=== PATIENT | male | born 1955 | race African-American/Black ===

== ENCOUNTER 2021-07-04 18:06 | Emergency (ER) | payer MEDICAID ==
[~2021-07-04] VITALS: Ht 190.5 cm; Wt 85.0 kg
[2021-07-04] MEDS ORDERED: MECLIZINE 25MG TABLET PO ONE (18:30)
[2021-07-04] MEDS ORDERED: DEXAMETHASONE 4MG TABLET PO NR (18:45)
[2021-07-04 19:14] LABS: BASOPHILS % 0.3 % (0.0-2.0); EOSINOPHILS % 0.1 % (0.0-5.0); HEMATOCRIT. 40.7 % (42.0-52.0); HEMOGLOBIN. 13.8 g/dL (14.0-18.0); LYMPHOCYTES % 24.2 % (20.0-50.0); MEAN CORPUSCULAR HEMOGLOBIN 29.1 pg (28.0-32.0); MEAN PLATELET VOLUME 8.8 fl (7.4-10.4); MONOCYTES % 10.3 % (2.0-8.0); NEUTROPHILS % 65.1 % (40.0-76.0); PLATELET 216 x1000/uL (130-400); RED BLOOD CELL COUNT 4.73 mill/uL (4.7-6.1); RED CELL DISTRIBUTION WIDTH 14.1 % (11.6-14.6)
[2021-07-04 19:21] LABS: CHLORIDE 102 mEq/L (98-107)
[2021-07-04 19:28] VITALS: BP 157/83
[2021-07-04] MEDS ORDERED: ALBU6.7H9 INH (20:03)
[2021-07-04] MEDS ORDERED: AZIT250T12 MT (20:04)
== END 2021-07-04 20:57 | disposition home or self-care (01) ==
LOC: ER 18:06
DX: U07.1 COVID-19 (principal); J12.82 Pneumonia due to coronavirus disease 2019; E87.1 Hypo-osmolality and hyponatremia; I44.4 Left anterior fascicular block; D64.9 Anemia, unspecified
CPT/HCPCS: 36415; 71045; 80053; 85025; 93005; 99285; J8540

== ENCOUNTER 2022-06-05 14:26 | Inpatient (IN) | payer MEDICAID ==
[~2022-06-05] VITALS: Ht 188 cm; Wt 99.8 kg
[~2022-06-05 14:26] MED LIST: ALBU6.7H3 INH; AZIT250T12 MT
[2022-06-05] MEDS ORDERED: SODIUM CHLORIDE 0.9% 1,000 ML IV ONE (16:30)
[2022-06-05] MEDS ORDERED: KETOROLAC 30MG/ML VIAL IV NR (16:30)
[2022-06-05 16:41] LABS: BASOPHILS % 0.2 % (0.0-2.0); HEMOGLOBIN. 15.9 g/dL (14.0-18.0); LYMPHOCYTES % 8.4 % (20.0-50.0); MEAN CORPUSCULAR HEMOGLOBIN 29.7 pg (28.0-32.0); MEAN PLATELET VOLUME 8.9 fl (7.4-10.4); MONOCYTES % 6.7 % (2.0-8.0); NEUTROPHILS % 84.7 % (40.0-76.0); PLATELET 282 x1000/uL (130-400); RED BLOOD CELL COUNT 5.34 mill/uL (4.7-6.1); RED CELL DISTRIBUTION WIDTH 14.5 % (11.6-14.6)
[2022-06-05] MEDS ORDERED: MORPHINE SULFATE 4 MG/ML CPJ (NOT FOR IM USE) IV ONE ×2 (17:00→19:45)
[2022-06-05 17:55] LABS: CHLORIDE 104 mEq/L (98-107)
[2022-06-05] MEDS ORDERED: CEFTRIAXONE SODIUM 1 G/VIAL IM NR (19:00)
[2022-06-05] MEDS ORDERED: TAMSULOSIN HCL 0.4MG SR CAPSULE PO NR (19:00)
[2022-06-05] MEDS ORDERED: LIDOCAINE HCL 1% 10 MG/ML 10ML VIAL INJ SCH (19:15)
[2022-06-05 19:16] LABS: CLARITY URINE CLEAR (CLEAR); COLOR URINE YELLOW (YELLOW); KETONES URINE NEGATIVE (NEGATIVE); LEUKOCYTE ESTERASE URINE NEGATIVE (NEGATIVE); NITRITE URINE NEGATIVE (NEGATIVE); OCCULT BLOOD URINE NEGATIVE (NEGATIVE); PH URINE 5.5 (4.5-8.0); PROTEIN URINE 2+ (NEGATIVE); UROBILINOGEN URINE 0.2 E.U./dL (0.2-1.0)
[2022-06-05] MEDS ORDERED: LISINOPRIL 5MG TABLET PO ONE (20:15)
[2022-06-06 03:23] VITALS: BP 156/71
[2022-06-06 08:00] VITALS: BP 118/65
[2022-06-06] MEDS ORDERED: CLONIDINE 0.1MG TABLET PO PRN (08:00)
[2022-06-06] MEDS ORDERED: NALOXONE HCL 0.4MG/ML VIAL IV PRN (08:15)
[2022-06-06] MEDS: SODIUM CHLORIDE 0.9% 1,000 ML IV SCH ×3 (08:38→23:27)
[2022-06-06] MEDS: MORPHINE SULFATE 2 MG/ML CPJ (NOT FOR IM USE) IV PRN ×2 (08:38→23:23)
[2022-06-06 10:55] LABS: BASOPHILS % 0.2 % (0.0-2.0); EOSINOPHILS % 0.2 % (0.0-5.0); HEMATOCRIT. 39.1 % (42.0-52.0); HEMOGLOBIN. 12.8 g/dL (14.0-18.0); LYMPHOCYTES % 13.6 % (20.0-50.0); MEAN CORPUSCULAR HEMOGLOBIN 29.2 pg (28.0-32.0); MEAN CORPUSCULAR VOLUME 89.4 fL (80.0-94.0); MEAN PLATELET VOLUME 8.6 fl (7.4-10.4); MONOCYTES % 11.9 % (2.0-8.0); NEUTROPHILS % 74.1 % (40.0-76.0); PLATELET 224 x1000/uL (130-400); RED BLOOD CELL COUNT 4.37 mill/uL (4.7-6.1); RED CELL DISTRIBUTION WIDTH 14.4 % (11.6-14.6)
[2022-06-06 11:08] LABS: PROTHROMBIN TIME 10.6 sec (9.6-11.0)
[2022-06-06] MEDS ORDERED: PROPOFOL 200MG/20ML VIAL IV ONE (11:57)
[2022-06-06] MEDS ORDERED: FENTANYL CITRATE/PF 50MCG/ML 2ML VIAL ONE (11:57)
[2022-06-06] MEDS ORDERED: MIDAZOLAM HCL 2 MG/2 ML VIAL ONE (12:00)
[2022-06-06] MEDS ORDERED: PHENYLEPHRINE HCL 10 MG/ML 1ML (IV VIAL) IV ONE (12:12)
[2022-06-06] MEDS ORDERED: VASOPRESSIN 20 UNIT/ML 1ML ONE (12:21)
[2022-06-06] MEDS ORDERED: KETOROLAC 30MG/ML VIAL ONE (12:58)
[2022-06-06] MEDS ORDERED: ONDANSETRON HCL 4MG/2ML INJ ONE (12:58)
[2022-06-06] MEDS ORDERED: GLYCOPYRROLATE 0.2 MG/ML 2ML VIAL ONE (13:06)
[2022-06-06 16:00] VITALS: BP 105/68
[2022-06-06] MEDS: CEFEPIME 1,000 MG in DEXTROSE 5% WATER 50 ML IV SCH ×2 (16:43→21:07)
[2022-06-06] MEDS: KETOROLAC 15MG/ML VIAL IV SCH ×2 (16:44→21:08)
[2022-06-06 20:00] VITALS: BP 101/53
[2022-06-07] VITALS: BP 124/69
[2022-06-07 04:00] VITALS: BP 106/45
[2022-06-07] MEDS: KETOROLAC 15MG/ML VIAL IV SCH ×2 (05:06→14:32)
[2022-06-07 07:29] LABS: CHLORIDE 112 mEq/L (98-107)
[2022-06-07 07:30] LABS: BASOPHILS % 0.3 % (0.0-2.0); HEMATOCRIT. 33.7 % (42.0-52.0); HEMOGLOBIN. 11.1 g/dL (14.0-18.0); LYMPHOCYTES % 19.1 % (20.0-50.0); MEAN CORPUSCULAR HEMOGLOBIN 29.9 pg (28.0-32.0); MEAN CORPUSCULAR VOLUME 90.5 fL (80.0-94.0); MONOCYTES % 13.7 % (2.0-8.0); NEUTROPHILS % 65.9 % (40.0-76.0); PLATELET 188 x1000/uL (130-400); RED BLOOD CELL COUNT 3.73 mill/uL (4.7-6.1); RED CELL DISTRIBUTION WIDTH 14.3 % (11.6-14.6)
[2022-06-07 08:00] VITALS: BP 142/72
[2022-06-07] MEDS: CEFEPIME 1,000 MG in DEXTROSE 5% WATER 50 ML IV SCH (09:40)
[2022-06-07] MEDS: SODIUM CHLORIDE 0.9% 1,000 ML IV SCH (09:45)
[2022-06-07 12:00] VITALS: BP 138/74
[2022-06-07] MEDS ORDERED: IBUP-2030 MT (13:13)
[2022-06-07] MEDS ORDERED: CIPR-263 MT (13:13)
[2022-06-07 15:29] VITALS: BP 138/74
[2022-06-07 16:00] VITALS: BP 140/71
== END 2022-06-07 15:50 | disposition home or self-care (01) | DRG 443 ==
LOC: ER 14:26 → MICUSO 23:18 → 6EST 06-06 02:33
PROVIDERS: ADMIT Internal Medicine; ATTEND Internal Medicine
PROC: 0TC18ZZ Extirpation of Matter from Left Kidney, Via Natural or Artificial Opening Endoscopic (ICD-10-PCS; principal; 2022-06-06)
PROC: 0T778DZ Dilation of Left Ureter with Intraluminal Device, Via Natural or Artificial Opening Endoscopic (ICD-10-PCS; 2022-06-06)
DX: N13.6 Pyonephrosis (principal); N17.0 Acute kidney failure with tubular necrosis; N17.9 Acute kidney failure, unspecified; I25.10 Atherosclerotic heart disease of native coronary artery without angina pectoris; J45.909 Unspecified asthma, uncomplicated; Z20.822 Contact with and (suspected) exposure to COVID-19; K57.90 Diverticulosis of intestine, part unspecified, without perforation or abscess without bleeding; Z87.442 Personal history of urinary calculi
CPT/HCPCS: 36415; 74021; 74176; 76000; 80048; 80053; 81003; 85025; 87426; 99285; C1758; C1769; C2617; J0692; J0696; J1885; J2250; J2270; J2370; J2405; J2704; J3010; J3490; J7030; J7060

== ENCOUNTER 2024-02-16 19:58 | Emergency (ER) | payer MEDICAID ==
[~2024-02-16] VITALS: Ht 185.4 cm; Wt 95.0 kg
[~2024-02-16 19:58] MED LIST changes: +CIPR-263 MT; +IBUP-2030 MT
[2024-02-16 20:06] VITALS: BP 118/63; PULSE 84; RESP 18; TEMP 98.5; O2SAT 100
[2024-02-16] MEDS ORDERED: LIDO700A15 TP (22:28)
== END 2024-02-16 23:57 | disposition home or self-care (01) ==
LOC: ER 20:21
DX: R60.0 Localized edema (principal); I10 Essential (primary) hypertension
CPT/HCPCS: 73600; 93971; 99284